=== PATIENT | male | born 1960 | race Two or more races ===

== ENCOUNTER 2024-09-22 09:45 | Inpatient (IN) | payer OTHER ==
[~2024-09-22] VITALS: Ht 152.4 cm; Wt 74.8 kg
[2024-09-28 08:38] LABS: HEMATOCRIT 45.2 % (39.0-48.0); HEMOGLOBIN 14.6 g/dL (13-16.00); MEAN CELL VOLUME 77.8 fL (80.0-100.00); MEAN CORPUSCULAR HEMOGLOBIN 25.1 pg (27.00-32.0); MEAN CORPUSCULAR HGB CONC 32.2 g/dl (32.0-36.0); PLATELET COUNT 146 K/uL (150-450); RED CELL DISTRIBUTION WIDTH 17.6 % (11.5-14.5)
[2024-09-28 08:54] LABS: PH,URINE 5.5 (5.0-8.0); URINE APPEARANCE Cloudy; URINE BILIRRUBIN Negative (NEGATIVE); URINE BLOOD Large; URINE COLOR Dark Yellow; URINE GLUCOSE Negative (NEGATIVE); URINE KETONE Trace (NEGATIVE); URINE LEUKOCYTE Small; URINE NITRATE Negative
[2024-09-28 08:58] LABS: URINE BACTERIA 297.3 uL (0.0-1933); URINE EPITHELIAL CELLS 22.1 uL (0.0-38.8); URINE RBC 800.8 uL (0.0-20.8); URINE WBC 115.4 uL (0.0-23.2)
[2024-09-28 08:58] LABS: INR 0.98; PARTIAL THROMBOPLASTIN TIME 21.8 SECONDS (22.0-34.0); PROTHROMBIN TIME 10.7 SECONDS (9.0-11.5)
[2024-09-28] MEDS ORDERED: TAMS0.4C PO (08:58)
[2024-09-28] MEDS ORDERED: ATORVASTATIN CA10 MG (09:00)
[2024-09-28 09:07] VITALS: BP 119/81
[2024-09-28 09:23] LABS: URINE CAST 0.61 uL (0.0-1.40); URINE PROTEIN 100 (NEGATIVE)
[2024-09-28 09:45] LABS: CREATININE SERUM 0.87 mg/dL (0.70-1.30); GFR 88.34; POTASSIUM 4.24 mEq/L (3.5-5.1)
[2024-09-28 09:52] LABS: RH POSITIVE
[2024-09-30] MEDS ORDERED: CEFAZOLIN SODIUM 1,000 MG in 0.9 % SODIUM CHLORIDE 50 ML IV ONE (13:00)
[2024-09-30] MEDS ORDERED: ENOXAPARIN SODIUM 40 MG/0.4 ML SYRINGE SUBCUTANEO ONE (13:00)
[2024-09-30] MEDS ORDERED: RINGERS SOLUTION,LACTATED 1,000 ML IV SCH (14:45)
[2024-09-30] MEDS ORDERED: OxyCODONE HCL/APAP UD (PERCOCET) PO PRN (14:45)
[2024-09-30] MEDS ORDERED: ONDANSETRON HCL 2 MG/ML VIAL IV PRN (14:45)
[2024-09-30] MEDS ORDERED: MORPHINE SULFATE 4 MG/ML CARTRIDGE IV PRN (14:45)
[2024-09-30] MEDS ORDERED: SUGAMMADEX SODIUM 200 MG/2 ML VIAL IV ONE (15:45)
[2024-09-30] MEDS ORDERED: hydrALAZINE HCL 20 MG VIAL IV ONE (15:45)
[2024-09-30 16:19] LABS: HEMOGLOBIN 14.1 g/dL (13-16.00); MEAN CELL VOLUME 76.5 fL (80.0-100.00); MEAN CORPUSCULAR HGB CONC 32.7 g/dl (32.0-36.0); PLATELET COUNT 146 K/uL (150-450); RED BLOOD COUNT 5.61 M/uL (4.00-6.00); RED CELL DISTRIBUTION WIDTH 18.1 % (11.5-14.5)
[2024-09-30] MEDS ORDERED: POLYETHYLENE GLYCOL 3350 17 GM BLIST.PACK PO SCH (17:00)
[2024-09-30] MEDS ORDERED: GABAPENTIN 300 MG CAPSULE PO SCH (17:00)
[2024-09-30 19:26] VITALS: BP 128/68; O2SAT 98
[2024-09-30] MEDS ORDERED: FAMOTIDINE/PF 20 MG/2 ML VIAL IV SCH (21:00)
[2024-09-30] MEDS ORDERED: CEFAZOLIN SODIUM 1,000 MG VIAL IV SCH (21:00)
[2024-10-01 00:23] VITALS: BP 115/66; O2SAT 95
[2024-10-01 07:17] LABS: HEMOGLOBIN 14.3 g/dL (13-16.00); MEAN CELL VOLUME 77.8 fL (80.0-100.00); MEAN CORPUSCULAR HEMOGLOBIN 25.3 pg (27.00-32.0); MEAN CORPUSCULAR HGB CONC 32.5 g/dl (32.0-36.0); PLATELET COUNT 154 K/uL (150-450); RED BLOOD COUNT 5.66 M/uL (4.00-6.00); RED CELL DISTRIBUTION WIDTH 18.3 % (11.5-14.5)
[2024-10-01 08:00] VITALS: BP 107/74; O2SAT 96
[2024-10-01 08:07] LABS: ALBUMIN 2.8 gm/dL (3.4-5.0); CREATININE SERUM 0.85 mg/dL (0.70-1.30); GFR 90.75; PHOSPHOROUS 2.5 mg/dL (2.5-4.9); POTASSIUM 5.11 mEq/L (3.5-5.1)
[2024-10-01] MEDS ORDERED: OXYBUTYNIN CHLORIDE 5 MG TABLET PO SCH (09:00)
[2024-10-01] MEDS ORDERED: ENOXAPARIN SODIUM 40 MG/0.4 ML SYRINGE SUBCUTANEO SCH (09:00)
== END 2024-10-01 11:31 | disposition home or self-care (01) | DRG 718 ==
LOC: O/R 09-30 05:11 → SURH 09-30 07:00 → SURG 09-30 18:00
PROVIDERS: ADMIT Urology; ATTEND Urology
PROC: 8E0W4CZ Robotic Assisted Procedure of Trunk Region, Percutaneous Endoscopic Approach (ICD-10-PCS; 2024-09-30)
PROC: 0VB04ZZ Excision of Prostate, Percutaneous Endoscopic Approach (ICD-10-PCS; principal; 2024-09-30 07:00)
DX: N40.1 Benign prostatic hyperplasia with lower urinary tract symptoms (principal); Z20.822 Contact with and (suspected) exposure to COVID-19
CPT/HCPCS: 55867; S2900